=== PATIENT | female | born 1975 | race Caucasian/White ===

== ENCOUNTER 2020-03-08 16:34 | Emergency (ER) | payer OTHER, SELFPAY ==
[2020-03-08 16:46] VITALS: BP 140/71; PULSE 98; RESP 16; TEMP 36.9; O2SAT 99
--- NOTE | 2020-03-08 17:05 | ED.FEMALEGU ---
HPI - Female Genitourinary General Chief complaint: Urogenital-Female Stated complaint: possible uti Time Seen by Provider: 03/08/20 17:05 Source: patient and RN notes reviewed History of Present Illness HPI Narrative: Patient is a 44-year-old female who presents the urgent care with complaints of 3 to 4-day history of increased urinary frequency and suprapubic pressure. Patient has been taking Azo [id number] without much relief. Patient denies any fever, chills, nausea, vomiting. Denies any frequent history of UTIs. Denies of any blood in the urine. No other acute complaints. Patient is tearful due to at home stress but otherwise no acute distress noted. Patient aware of the plan of care. Related Data Allergies Allergy/AdvReac Type Severity Reaction Status Date / Time No Known Allergies Allergy Unverified 02/24/14 18:51 Review of Systems Review of Systems: Narrative: CONSTITUTIONAL: Denies fever, chills, or sweats. EYES: Denies visual changes, redness, or discharge. ENT: Denies rhinorrhea, congestion, sore throat, or otalgia. CARDIOVASCULAR: Denies chest pain, palpitations, or edema. RESPIRATORY: Denies cough or dyspnea. GASTROINTESTINAL: Denies abdominal pain, nausea, vomiting, or diarrhea. GENITOURINARY: Reports of dysuria and suprapubic pressure SKIN: Denies rash or itching. MUSCULOSKELETAL: Denies back pain, joint pain, or myalgia. NEUROLOGIC: Denies headache, numbness, or weakness. All other systems reviewed are negative, except as documented in HPI. PMFSH Comments At the time of my signature, I reviewed and agree with the nursing past medical, surgical, social, and family history. There is no relevant family history pertinent to the patient complaint. Exam Narrative: Exam Narrative: GENERAL: This is a well-nourished, well-developed patient, in no apparent distress. HEAD: normocephalic, atraumatic. EYES: PERRL. Sclera clear/white. Vision is grossly intact. EARS: External ears normal NOSE: External nose normal with no obvious nasal discharge, nares without redness, no rhinorrhea. THROAT: Mucous membranes moist NECK: Neck supple GASTROINTESTINAL: Abdomen soft, non-tender, nondistended. SKIN: warm, intact with no suspicious lesions or rash, good texture and turgor. NEURO: awake, alert, and oriented to person, place and time. There were no obvious focal neurologic abnormalities. EXTREMITIES: No clubbing, cyanosis, or edema. BACK: Negative bilateral CVA tenderness Course Vital Signs Vital signs: Vital Signs Temperature 98.5 F 03/08/20 16:46 Pulse Rate 98 03/08/20 16:46 Respiratory Rate 16 03/08/20 16:46 Blood Pressure 140/71 03/08/20 16:46 Pulse Oximetry 99 03/08/20 16:46 Temperature 98.5 F 03/08/20 16:46 Pulse Rate 98 03/08/20 16:46 Respiratory Rate 16 03/08/20 16:46 Blood Pressure 140/71 03/08/20 16:46 Pulse Oximetry 99 03/08/20 16:46 Reviewed MDM - Female Genitourinary MDM Narrative Medical decision making narrative: Reviewed lab results with the patient. She is aware that urine analysis is indicative of a urinary tract infection. Advised the patient to complete oral antibiotic regimen as prescribed. Use the Pyridium as needed for bladder spasms. We will culture the urine and call her if medication needs to be changed, based on culture results. Increase water intake and avoid sugary and caffeinated drinks. If you develop any increase in symptoms associated with fever, nausea, vomiting, abdominal pain, blood in the urine?go to the emergency room. Follow-up with your PCP within 2 to 5 days or for worsening symptoms or failure to improve. Differential Diagnosis Differential diagnosis: Likely urinary tract infection, cervicitis, ovarian cyst, vaginitis and cystitis Lab Data Labs: Urine Glucose Trace Reference Range: Negative Urine Bilirubin Negative Reference Range: Negative Urine Ketone Negative
== END 2020-03-08 17:21 | disposition home or self-care (01) ==
PROVIDERS: Emergency Provider Nurse Practitioner Family
DX: N39.0 Urinary tract infection, site not specified (principal)
CPT/HCPCS: 81003; 87077; 87086; 87088; 87186; 99213; G0463

== ENCOUNTER 2020-06-20 13:06 | Outpatient (CLI) | payer OTHER, SELFPAY ==
--- NOTE | ~2020-06-20 | MMUS_ITS ---
EXAMINATION: MM diagnostic ayush BI w gladys, US breast LT limited HISTORY: Six-month limited left breast ultrasound follow-up TECHNIQUE: Additional 3-D tomosynthesis images of were performed and synthetic 2-D images were genera latesha. CAD analysis was submitted and interpreted. High resolution breast ultrasound was performed. COMPARISON: 02/05/2019 limited left breast ultrasound 01/29/2019 diagnostic left digital mammogram 07/28/2018 bilateral diagnostic digital mammogram and limited left breast ultrasound 07/21/2018 bilateral digital screening mammogram BREAST PARENCHYMAL COMPOSITION: The breasts are heterogeneously dense, which may obscure small masses . FINDINGS: MAMMOGRAPHIC FINDINGS: Occasional microcalcifications are noted bilaterally including some grouped punctate rounded microcal cifications in the posterior aspect of the outer left breast on CC projection. These appear stable co mpared to the craniocaudal view dated 01/29/2019. No interval suspicious mass or architectural distortion, malignant calcification, skin thickening or retraction is evident. ULTRASOUND: 3:00 2 cm from nipple: 5.9 x 4.8 x 7.4 mm septated cyst with through transmission and posterior enhan cement 3:00 near nipple: 6.9 x 4.4 x 4.8 mm simple cyst with through transmission posterior enhancement 4:00 3 cm from nipple: Septated 14.3 x 5.9 x 11.1 mm cyst with through transmission posterior enhance ment. No suspicious mass or shadowing is evident. IMPRESSION: 1. No mammographic evidence of malignancy; benign cysts and benign appearing microcalcifications 2. Routine mammographic screening is recommended. BI-RADS Category 2: Benign finding(s). Reviewed, dictated and finalized at location A. IMPRESSION: 1. No mammographic evidence of malignancy; benign cysts and benign appearing mi crocalcifications 2. Routine mammographic screening is recommended. BI-RADS Category 2: Benign finding(s).
== END 2020-06-20 13:07 | disposition home or self-care (01) ==
PROVIDERS: PCP Obstetrics & Gynecology; Visit Provider Obstetrics & Gynecology
DX: R92.8 Other abnormal and inconclusive findings on diagnostic imaging of breast (principal)
CPT/HCPCS: 76642; 77062; 77066; G0279

== ENCOUNTER 2021-07-15 14:57 | Emergency (ER) | payer OTHER, SELFPAY ==
--- NOTE | 2021-07-15 15:07 | ED.EYEPROB ---
HPI - Eye Problem General Chief complaint: Eye Problems Stated complaint: left eye swelling Time Seen by Provider: 07/15/21 15:36 Source: patient and RN notes reviewed Mode of arrival: ambulatory Limitations: no limitations History of Present Illness HPI Narrative: 45-year-old female presents with multiple complaints. She reports left upper eyelid swelling without pain, drainage, vision changes. Reports symptoms started yesterday. Reports intermittent left-sided headache. In a separate complaint she also reports bilateral shoulder muscle pain and tension. Denies injury. Reports she has been experiencing a great amount of stress recently due to the anniversary of the of her mother. Reports she has taken [id number] NSAIDs without relief. MD chief complaint: other (Eye swelling, muscle spasm) Related Data Home Medications Medication Instructions Recorded Confirmed No Home Medications 07/15/21 07/15/21 Allergies Allergy/AdvReac Type Severity Reaction Status Date / Time No Known Allergies Allergy Unverified 02/24/14 18:51 Review of Systems Review of Systems: CONSTITUTIONAL: Denies malaise, chills, sweats, or fever. EYES: Denies visual changes, redness, or discharge. Reports left upper eyelid swelling ENT: Denies rhinorrhea, congestion, sinus pain, otalgia or sore throat. CARDIOVASCULAR: Denies chest pain, palpitations, or edema. RESPIRATORY: Denies cough or dyspnea. SKIN: Denies rash or itching. MUSCULOSKELETAL: Reports bilateral pain between the neck and shoulders NEUROLOGIC: Denies numbness, weakness. Reports intermittent left-sided headache. PSYCHIATRIC: Reports increased stress All systems reviewed & are unremarkable except as noted in HPI and below PMFSH Comments At time of signature, agree with nursing past medical, surgical, social and family history. There is no relevant family history pertinent to the presenting complaint Exam Narrative: GENERAL: Well-appearing, well-nourished, and in no acute distress. HEAD: Normocephalic, atraumatic. EYES: PERRLA, sclera clear, conjunctivae clear. Mild superficial edema in the left upper eyelid consistent with hordeolum ENT: Nares clear. Mucous membranes moist. NECK: Supple. CHEST: No respiratory distress. Speaks in full sentences. HEART: Regular rate and rhythm. No murmur heard. Normal peripheral pulses. EXTREMITIES: Grossly normal range of motion. No edema. SKIN: Warm, dry, no visible rash. NEURO: Alert and oriented x3. PSYCH: Tearful Course Course Emergency Course: Patient is aware of diagnosis, understands and agrees to treatment plan. Anticipatory guidance given. Patient agrees to follow-up as directed and is aware of reasons to seek care at the emergency department. Portions of this record may have been created with voice recognition software Vital Signs Vital signs: Reviewed. MDM - Eye Problem MDM Narrative Medical decision making narrative: Consideration of the following conditions may be warranted for the presenting problem, they are not final diagnoses: Bacterial conjunctivitis, allergic conjunctivitis, viral conjunctivitis, foreign body, blepharitis, chalazion, hordeolum, corneal abrasion, preseptal cellulitis, orbital cellulitis. No evidence of proptosis, ophthalmoplegia, vision loss, pain with eye movement. Exam findings show no acute concerns or changes; patient is non-toxic appearing and is in no distress. Patient is appropriate for outpatient treatment and follow-up. Critical Care Time Critical Care Time Critical Care Time: No Discharge Plan Discharge Clinical Impression: Muscle spasm Hordeolum Qualifiers: Hordeolum type: internum Laterality: left Eyelid: upper Qualified Code(s): H00.024 - Hordeolum internum left upper eyelid Patient Disposition: Home, Self-Care Condition: Stable Instructions: Stye (ED), Muscle Spasm (ED) Additional Instructions: Eye: Do not touch or rub your eye. Use a warm compress on your eye
[2021-07-15 15:09] VITALS: BP 120/83; PULSE 86; RESP 16; TEMP 36.6; O2SAT 100
[2021-07-15 15:10] VITALS: BP 120/83; PULSE 86; RESP 16; TEMP 36.6; O2SAT 100
== END 2021-07-15 15:49 | disposition home or self-care (01) ==
PROVIDERS: Emergency Provider Nurse Practitioner
DX: H00.024 Hordeolum internum left upper eyelid (principal); M62.838 Other muscle spasm
CPT/HCPCS: 99213; G0463

== ENCOUNTER 2021-12-10 17:39 | Outpatient (CLI) | payer OTHER, SELFPAY ==
--- NOTE | ~2021-12-10 | MM_ITS ---
EXAMINATION: MM screening ayush BI w gladys HISTORY: Screening TECHNIQUE: Craniocaudal and mediolateral oblique 3-D tomosynthesis images were obtained and synthetic 2-D images were generated. CAD analysis was submitted and interpreted. COMPARISON: Comparison to multiple prior studies sequentially, with oldest reviewed study dated 07/03. BREAST PARENCHYMAL COMPOSITION: The breasts are heterogenously dense, which may obscure small masses FINDINGS: There are developing bilateral breast asymmetries in the upper outer quadrant of the left b reast and upper aspect of the right breast on MLO view. IMPRESSION: 1. Developing bilateral breast asymmetries. 2. Additional mammographic views and possible breast ultrasound are recommended. BI-RADS Category 0: Incomplete: Needs additional imaging evaluation. Reviewed, dictated and finalized at location A. MASTERS MANAGER IMPRESSION: 1. Developing bilateral breast asymmetries. 2. Additional mammographic views and possible breast ultrasound are recommended . BI-RADS Category 0: Incomplete: Needs additional imaging evaluation.
== END 2021-12-10 17:40 | disposition home or self-care (01) ==
LOC: ANHIMG 17:41
PROVIDERS: Visit Provider Student in an Organized Health Care Education/Training Program
DX: Z12.31 Encounter for screening mammogram for malignant neoplasm of breast (principal); R92.8 Other abnormal and inconclusive findings on diagnostic imaging of breast
CPT/HCPCS: 77063; 77067

== ENCOUNTER 2022-01-08 13:03 | Outpatient (CLI) | payer OTHER, SELFPAY ==
--- NOTE | ~2022-01-08 | MMUS_ITS ---
EXAMINATION: MM diagnostic ayush BI w gladys, US breast BI limited HISTORY: Follow-up bilateral masses TECHNIQUE: Additional 3-D tomosynthesis images of the breasts were performed and synthetic 2-D images were generated. CAD analysis was submitted and interpreted. High resolution limited bilateral breast ultrasound was performed. COMPARISON: Comparison to multiple prior studies sequentially, with oldest reviewed study dated 07/03. BREAST PARENCHYMAL COMPOSITION: The breasts are heterogenously dense, which may obscure small masses FINDINGS: MAMMOGRAPHIC FINDINGS: There are subtle bilateral masses superiorly in both breasts which are obscured by fibroglandular tis nathan. ULTRASOUND: Limited right breast ultrasound: There are multiple right breast cysts. In addition at 8:00, 4 cm fro m the nipple there is an oval hypoechoic mass without internal vascularity or posterior features tanya uring 9 mm maximum dimension, likely benign. Limited left breast ultrasound: There are multiple left breast cysts. In addition, there is an oval h ypoechoic mass measuring 5 x 5 x 4 mm without internal vascularity or posterior features, likely maría gn. IMPRESSION: 1. Probable benign bilateral breast masses by ultrasound. Multiple additional benign cysts are presen t in both breasts. 2. Recommend 6 month follow-up limited bilateral breast ultrasound. BI-RADS category 3, probably benign findings. Reviewed, dictated and finalized at location A. IMPRESSION: 1. Probable benign bilateral breast masses by ultrasound. Multiple additional b enign cysts are present in both breasts. 2. Recommend 6 month follow-up limited bilateral breast ultrasound. BI-RADS category 3, probably benign findings.
== END 2022-01-08 13:04 | disposition home or self-care (01) ==
LOC: ANHIMG 13:05
PROVIDERS: Visit Provider Student in an Organized Health Care Education/Training Program
DX: N60.02 Solitary cyst of left breast (principal); N60.01 Solitary cyst of right breast
CPT/HCPCS: 76642; 77062; 77066; G0279

== ENCOUNTER 2022-02-01 07:37 | Outpatient (CLI) | payer OTHER, SELFPAY ==
[2022-02-01 08:06] LABS: Basophils Absolute Auto 0.1 K/mm3 (0.0-0.1); Basophils Percent Auto 0.8 % (0.2-1.2); Eosinophils Absolute Auto 0.1 K/mm3 (0-0.3); Eosinophils Percent Auto 1.3 % (0-4.4); Hematocrit 42.1 % (37.0-47.0); Hemoglobin 13.2 g/dL (12.0-15.0); Immature Granulocyte Absolute 0.03 K/mm3 (0.00-0.031); Immature Granulocyte Percent A 0.4 % (0-0.5); Lymphocytes Absolute Auto 2.39 K/mm3 (0.9-3.2); Lymphocytes Percent Auto 30.3 % (18.3-44.2); Mean Corpuscular HGB Conc 31.4 g/dl (32-36); Mean Corpuscular Hemoglobin 27.7 pg (26-34); Mean Corpuscular Volume 88.4 fl (80-100); Mean Platelet Volume 9.4 fl (7.4-10.4); Monocytes Absolute Auto 0.6 K/mm3 (0.1-0.6); Monocytes Percent Auto 7.5 % (2.6-8.5); Neutrophils Absolute Auto 4.7 K/mm3 (1.3-6.7); Neutrophils Percent Auto 59.7 % (45.5-73.1); Platelet Count Result 394 k/mm3 (150-375); Red Blood Count 4.76 M/mm3 (4.2-5.4); Red Cell Distribution Width 13.2 % (11.5-14.5); White Blood Count 7.9 K/mm3 (4.5-10.0)
[2022-02-01 08:14] LABS: Alanine Aminotransferase 15 U/L (4-35); Albumin Level 4.6 g/dL (3.5-5.1); Alkaline Phosphatase 67 U/L (38-126); Anion Gap 8 mmol/L (8-16); Aspartate Amino Transferase 21 U/L (14-36); Bilirubin,Total 0.4 mg/dL (0.2-1.3); Blood Urea Nitrogen 13 mg/dL (7-17); Calcium 8.9 mg/dL (8.4-10.2); Carbon Dioxide 26 mmol/L (22-30); Chloride 105 mmol/L (98-107); Cholesterol 187 mg/dL (0-200); Estimated Glomerular Filt Rate > 60; Glucose 103 mg/dL (65-110); HDL Direct 48 mg/dL; Potassium 4.3 mmol/L (3.4-5.0); Sodium 139 mmol/L (137-145); Triglycerides 87 mg/dL (<150)
[2022-02-01 08:25] LABS: Hemoglobin A1C 5.1 % (<5.7); LDL Cholesterol Direct 99 mg/dL
[2022-02-01 08:48] LABS: Free T4 Free Thyroxine 1.09 ng/mL (0.78-2.19)
== END 2022-02-01 07:38 | disposition home or self-care (01) ==
DX: Z00.00 Encounter for general adult medical examination without abnormal findings (principal); R53.83 Other fatigue
CPT/HCPCS: 36415; 80053; 80061; 83036; 84439; 84443; 85025

== ENCOUNTER 2022-04-28 15:27 | Emergency (ER) | payer OTHER, SELFPAY ==
--- NOTE | ~2022-04-28 | XR_ITS ---
XR ankle RT min 3V DATE: 04/28/2022 15:48 INDICATION: Right lateral ankle pain after twisting injury last night TECHNIQUE: 4 views COMPARISON: None FINDINGS: Prominent plantar and posterior calcaneal enthesopathy. No fracture or dislocation of the ankle or disruption of the ankle mortise. No periosteal reaction or bone destruction. IMPRESSION: No fracture or dislocation Prominent plantar and posterior calcaneal enthesopathy Reviewed, dictated and finalized at location A.
--- NOTE | 2022-04-28 15:28 | ED.LOWEXIN ---
HPI - Extremity Injury (Lower) General Chief Complaint: Extremity Injury, Lower Stated Complaint: right ankle pain Time Seen by Provider: 04/28/22 15:53 Source: patient and RN notes reviewed Mode of arrival: ambulatory Limitations: no limitations History of Present Illness HPI Narrative: 46-year-old female presents to the [facility] with complaints of lateral right ankle pain since yesterday. Patient states that she rolled it while trying to walk [place] of the movie theater. Has taken ibuprofen and iced it. Patient states she did not fall or hit her head. No knee pain. Related Data Allergies Allergy/AdvReac Type Severity Reaction Status Date / Time No Known Allergies Allergy Unverified 02/24/14 18:51 Review of Systems Review of Systems: All systems reviewed & are unremarkable except as noted in HPI and below Constitutional: Constitutional: Reports no additional constitutional complaints, Denies chills and Denies fever(s) Eyes: Eyes: Reports no additional eye complaints ENT: Reports system reviewed and no additional complaints, except as documented Cardiovascular: Cardiovascular: Reports no additional cardiovascular complaints Respiratory: Respiratory: Reports no additional respiratory complaints Gastrointestinal: Gastrointestinal: Reports no additional gastrointestinal complaints Musculoskeletal: Musculoskeletal: Reports as per HPI, Reports arthralgias and Reports joint swelling Integumentary/Breasts: Skin/Breast: Reports system reviewed and no additional complaints, except as docu Neurologic: Reports system reviewed and no additional complaints, except as documented Psychiatric: Psychiatric: Reports no additional psychiatric complaints Allergic/Immunologic: Allergic/Immunologic: Reports no additional allergic/immunologic complaints PMFSH Past Medical History Medical History Anxiety and depression Social History Social History (Updated 04/28/22 @ 19:53 by Ade Cheng APRN) Living arrangements: with family Gender identity (if verbalized by the patient): Female Comments At the time of my signature, I reviewed and agree with the nursing past medical, surgical, social, and family history. There is no relevant family history pertinent to the patient complaint. Exam Const: General: healthy appearing, no acute distress and alert Nutritional Appearance: well nourished Orientation/consciousness: patient oriented x3 Limitations: no limitations HENMT: Head: normal to inspection Ears: external ears normal Eyes: General: appearance normal, both eyes and all related structures Pupils: Equal, round and reactive pupils present Neck: Neck: normal visual inspection, no lymphadenopathy and no meningeal signs Chest: Chest palpation & inspection: normal inspection of the chest Resp: Effort & Inspection: normal respiratory effort and no use of accessory muscles Auscultation: clear to auscultation bilaterally, no crackles, no rales, no rhonchi and no wheezes Cardio: Rate: regular rate Rhythm: regular rhythm GI: GI Palp: Yes Soft to palpation and No Tenderness to palpation present (GI) Back/Spine/Pelvis: Cervical Spine: normal cervical lordosis Thoracic/Lumbar Spine: thoracic and lumbar spine normal to inspection Skin: General skin exam: normal color Rashes: no rashes Wounds: no wounds Neuro: General: patient oriented x3, moves all extremities, no meningeal signs and no focal motor deficits Cranial nerves: Yes Equal, round and reactive pupils present Speech: normal speech Gait exam (Neuro): Normal gait present Extrem: General: normal to inspection, full ROM and capillary refill normal Right lower extremity: full ROM, normal capillary refill and ankle Details: tenderness Location: of the lateral malleolus, swelling Details: laterally and normal ROM; no abrasions, no lacerations and no ecchymosis Psych: Appearance: grossly normal and well kempt Ment
[2022-04-28 15:36] VITALS: BP 133/84; PULSE 90; RESP 16; TEMP 36.7; O2SAT 100
== END 2022-04-28 16:04 | disposition home or self-care (01) ==
PROVIDERS: Emergency Provider Nurse Practitioner
DX: S93.401A Sprain of unspecified ligament of right ankle, initial encounter (principal); X50.9XXA Other and unspecified overexertion or strenuous movements or postures, initial encounter
CPT/HCPCS: 73610; 99213; G0463

== ENCOUNTER 2022-08-20 07:58 | Outpatient (CLI) | payer OTHER, SELFPAY ==
--- NOTE | ~2022-08-20 | US_ITS ---
US breast BI limited 08/20/2022 08:57 Indication: Follow-up bilateral breast masses Procedure: High-resolution limited bilateral breast ultrasound Comparison: 01/08/2022 and 06/20/2020 Findings: In the right breast at 8:00, 4 cm from the nipple, there is a stable oval hypoechoic mass w ith circumscribed margins measuring 9 x 8 x 7 mm compared with 9 x 6 x 8 mm on prior examination. Thi s mass exhibits no significant posterior features. Left breast: At 3:00, 3 cm from the nipple there is a cluster of cysts, one of which contains interna l septations. These are unchanged from prior study. The largest cyst measures 1.9 cm. The oval 5 mm h ypoechoic mass in the left breast previously seen at 3:00, 3 cm from the nipple was not definitely se en on the current study. Impression: 1: Stable benign-appearing right breast mass at 8:00, 4 cm from the nipple, likely benign. No sonogra phic evidence for malignancy in the left breast. BI-RADS CATEGORY 3-PROBABLY BENIGN FINDING RECOMMENDATION: Six-month follow-up bilateral mammogram and Limited right breast ultrasound recommend ed. Reviewed, dictated and finalized at location A. [employer] DISPOSAL AGENT Impression: 1: Stable benign-appearing right breast mass at 8:00, 4 cm from the nipple, lik moni benign. No sonographic evidence for malignancy in the left breast. BI-RADS CATEGORY 3-PROBABLY BENIGN FINDING RECOMMENDATION: Six-month follow-up bilateral mammogram and Limited right breas t ultrasound recommended.
== END 2022-08-20 07:59 | disposition home or self-care (01) ==
LOC: ANHIMG 08:00
PROVIDERS: Visit Provider Obstetrics & Gynecology
DX: R92.8 Other abnormal and inconclusive findings on diagnostic imaging of breast (principal)
CPT/HCPCS: 76642

== ENCOUNTER 2022-09-17 08:32 | Emergency (ER) | payer OTHER, SELFPAY ==
--- NOTE | 2022-09-17 08:35 | ED.URI ---
HPI - URI/Sore Throat General Chief Complaint: Upper Respiratory Infection Stated Complaint: Cough,Sinus Time Seen by Provider: 09/17/22 08:36 Source: patient Mode of arrival: ambulatory Limitations: no limitations History of Present Illness HPI Narrative: Leatha is a 46-year-old female patient presenting to the clinic today with complaints of cough and runny nose x4 days. She reports she feels as though her cervical glands are swollen. States her throat does hurt from coughing and she does have a little chest discomfort from her cough. States she did take some NyQuil and this helped some. She denies any fever or chills. She denies any shortness of breath MD elicited complaint: sore throat and nasal congestion Related Data Allergies Allergy/AdvReac Type Severity Reaction Status Date / Time No Known Allergies Allergy Unverified 02/24/14 18:51 Review of Systems Review of Systems: Pertinent positives per HPI. Patient denies any fever, chills, rash, headache, visual changes, dizziness, shortness of breath, chest pain, palpitations, nausea, vomiting, diarrhea, constipation, abdominal pain, or any urinary issues. [facility] Past Medical History Medical History Anxiety and depression Social History Social History (Updated 04/28/22 @ 19:53 by Ade Cheng APRN) Gender identity (if verbalized by the patient): Female Comments At the time of my signature, I reviewed and agree with the nursing past medical, surgical, social, and family history. There is no relevant family history pertinent to the patient complaint. Exam Narrative: General: Well-developed, well nourished, in no apparent distress Head: Normocephalic, atraumatic Eyes: Pupils equally round and reactive to light bilaterally, EOM intact, sclera and conjunctive clear, no discharge, lids normal Ears: TMs intact and dull, ear canals clear, no drainage, grossly hearing normal. Nose: Nares patent, clear nasal discharge, no inflammation, no sinus tenderness. Mouth: Oral pharynx without lesions or masses, good dentition, MMM. oropharynx red, postnasal drip Neck: Supple, trachea midline, mild enlargement of anterior cervical nodes, no thyroid masses or goiter palpable. Cardio: Regular rate and rhythm, s1 and s2 normal, no murmur appreciated. Resp: Clear to auscultation bilaterally, no rhonchi, rales, wheezing or rubs Course Course Emergency Course: Portions of this record may have been created with voice recognition software. Level of Care: Express Care Visit Vital Signs Vital signs: Vital signs reviewed MDM - URI/Sore Throat MDM Narrative Medical decision making narrative: At the time of visit patient is resting comfortably on the exam table. COVID testing was completed in the clinic. I suspect patient has URI /postnasal drip. Prescription for prednisone and Tessalon Perles was sent to the pharmacy. Supportive measures were discussed with the patient and she voiced understanding of discharge instructions and agrees to treatment plan. Differential Diagnosis Differential diagnosis: Likely upper respiratory infection, otitis media, sinusitis, viral infection, bronchitis, influenza, pharyngitis and other ( COVID) Discharge Plan Discharge Clinical Impression: Acute upper respiratory infection, PND (post-nasal drip) Patient Disposition: Home, Self-Care Condition: Stable Instructions: Antibiotic Form, Upper Respiratory Infection (ED), Postnasal Drip (DC) Additional Instructions: COVID testing was negative in the clinic today. Take prescription medications only as prescribed- Prednisone and Tessalon Perles Continue taking DayQuil / NyQuil for cold/flu symptoms Increase fluids and stay well hydrated Tylenol/motrin for pain/fever Flonase and OTC antihistamines as directed Vicks vapor rub to open sinuses Sinus rinses for congestion Cepacol spray, cough drops, throat lozeng
[2022-09-17 08:39] VITALS: BP 126/68; PULSE 110; RESP 18; TEMP 36.2; O2SAT 100
== END 2022-09-17 09:09 | disposition home or self-care (01) ==
PROVIDERS: Emergency Provider Nurse Practitioner Family
DX: J06.9 Acute upper respiratory infection, unspecified (principal); R09.82 Postnasal drip; Z20.822 Contact with and (suspected) exposure to COVID-19
CPT/HCPCS: 87426; 99213; C9803; G0463

== ENCOUNTER 2023-04-04 09:51 | Outpatient (CLI) | payer OTHER, SELFPAY ==
--- NOTE | ~2023-04-04 | MMUS_ITS ---
EXAMINATION: US breast biopsy RT w image, MM post biopsy invasive RT DATE: 04/04/2023 11:35 (accession [id number]), 04/04/2023 11:10 (accession [id number]) INDICATION: Indeterminate mass in the upper outer quadrant of the right breast. Ultrasound-guided cor e biopsy is requested to evaluate for malignancy. TECHNIQUE AND FINDINGS: The risks and potential benefits of the procedure were discussed with the patient including bleeding and infection. A time out was performed. The skin of the right breast was prepared and draped in usua l sterile fashion. 1% lidocaine was used for superficial anesthesia. 1% lidocaine with epinephrine wa s used for deep anesthesia. A vacuum-assisted biopsy needle was advanced through to the outer edge of the region of interest from a lateral approach utilizing sonographic guidance. A total of five tissue core samples were obtained through the lesion. A tissue marker clip was then placed at the biopsy site. Hemostasis was achieved . A sterile bandage was applied. The patient tolerated procedure well and there was no evidence of immediate complication. The patient was given verbal instructions to return to the Emergency Department in the event of severe breast pa in or rapid breast enlargement. A two view right breast mammogram was obtained to document tissue mar ker clip placement. IMPRESSION: 1. Successful ultrasound-guided vacuum-assisted biopsy of right breast mass with tissue marker placem ent. Reviewed, dictated and finalized at location A. IMPRESSION: 1. Successful ultrasound-guided vacuum-assisted biopsy of right breast mass wit h tissue marker placement.
== END 2023-04-04 09:52 | disposition home or self-care (01) ==
PROVIDERS: PCP Obstetrics & Gynecology; Visit Provider Surgery
DX: N60.21 Fibroadenosis of right breast (principal)
CPT/HCPCS: 19083; 88305

== ENCOUNTER 2024-03-26 09:12 | Emergency (ER) | payer OTHER, SELFPAY ==
--- NOTE | ~2024-03-26 | XR_ITS ---
EXAMINATION: XR humerus RT DATE: 03/26/2024 10:32 INDICATION: Lower anterior right humeral pain and lump post injury 2 days prior TECHNIQUE: Internal and externally rotated views of the right humerus were obtained. COMPARISON: None. FINDINGS: Bone alignment is normal. No fracture. Mild osteoarthritis at the right acromioclavicular j oint. Glenohumeral and elbow joint spaces appear normal. Cystic change underlying the junction of the superior and middle facets of the greater tuberosity which can be seen with chronic rotator cuff dis ease. Soft tissues are unremarkable. Visualized portion of the right lung are clear. IMPRESSION: 1. No acute osseous abnormality. 2. Mild right acromioclavicular osteoarthritis and cystic change at the right greater tuberosity whic h can be seen with chronic rotator cuff disease. Reviewed, dictated and finalized at location B. IMPRESSION: 1. No acute osseous abnormality. 2. Mild right acromioclavicular osteoarthritis and cystic change at the right g reater tuberosity which can be seen with chronic rotator cuff disease.
[2024-03-26 09:29] VITALS: BP 131/88; PULSE 91; RESP 16; TEMP 37.1; O2SAT 99
--- NOTE | 2024-03-26 10:20 | ED.UPPEXIN ---
HPI - Extremity Injury (Upper) General Chief Complaint: Extremity Injury, Upper Stated Complaint: Right Arm Injury Time Seen by Provider: 03/26/24 10:14 Source: patient and RN notes reviewed Mode of arrival: ambulatory Limitations: no limitations History of Present Illness HPI narrative: Patient presents today complaining of right upper arm and elbow injury. Two days ago she was helping move some furniture at her father's home, slipped while kneeling on a table, caught herself with her arm and has been having pain in the upper arm and elbow ever since. Denies numbness or tingling. Currently rates her pain 4/10 and has been taking ibuprofen with some relief. Related Data Home Medications Medication Instructions Recorded Confirmed norgestimate 0.25 mg-ethinyl 1 tablet PO DAILY 03/14/23 03/26/24 estradiol 35 mcg tablet (Sprintec (28)) Allergies Allergy/AdvReac Type Severity Reaction Status Date / Time No Known Allergies Allergy Unverified 03/14/23 15:54 Review of Systems Review of Systems: CONSTITUTIONAL: Denies body aches, fever, chills, or sweats. EYES: Denies visual changes, redness, or discharge. ENT: Denies rhinorrhea, congestion, sore throat, or otalgia. CARDIOVASCULAR: Denies chest pain, palpitations, or edema. RESPIRATORY: Denies cough or dyspnea. GASTROINTESTINAL: Denies abdominal pain, nausea, vomiting, or diarrhea. GENITOURINARY: Denies dysuria or hematuria. SKIN: Denies rash, itching, or wounds. MUSCULOSKELETAL: Denies back pain, joint pain, or myalgia.+ right upper arm pain NEUROLOGIC: Denies headache, numbness, tingling, or weakness. PSYCH: Denies depression or anxiety. [facility] Past Medical History Medical History Anxiety and depression Social History Social History Smoking status: Never smoker Second hand tobacco smoke exposure: No Alcohol intake: current Lack of Transportation: No Lack of Food: Never True Current Housing: I Have Housing Concerned About Future Housing: No Difficulty Paying Gas/Electric Bills: Decline to Answer Difficulty Paying for Meds: Decline to Answer Currently Unemployed: No Education: Decline to Answer Difficulty w/ Childcare or Family Care: Decline to Answer Living arrangements: with family Gender identity (if verbalized by the patient): Female Comments At time of signature, I have reviewed and agree with nursing past medical, surgical, social and family history unless otherwise noted. Please see nursing chart for further information. There is no relevant family history pertinent to the presenting complaint Exam Narrative: GENERAL: Well-appearing, well-nourished, and in no acute distress. HEAD: Normocephalic, atraumatic. EYES: EOMI. No redness or drainage. Conjunctivae normal. ENT: Mucous membranes pink and moist. NECK: Normal AROM. CHEST: No respiratory distress. EXTREMITIES: Right arm: Large bulge to the biceps area that is mildly tender to palpation. Patient has some bruising and mild localized swelling to the medial epicondyle area. No bony tenderness to the olecranon process. Full range of motion of the shoulder and elbow. Distal sensation intact. Capillary refill normal. Radial pulse normal. SKIN: Warm, dry, no rash. Capillary refill normal. Normal skin turgor. NEURO: No focal deficits. Alert and oriented x3. Gait steady. PSYCH: Normal affect. No signs of depression or anxiety. Course Course Level of Care: Express Care Visit Vital Signs Vital signs: Vital Signs Temperature 98.7 F 03/26/24 09:29 Pulse Rate 91 03/26/24 09:29 Respiratory Rate 16 03/26/24 09:29 Blood Pressure 131/88 03/26/24 09:29 Pulse Oximetry 99 03/26/24 09:29 Oxygen Delivery Room Air 03/26/24 09:29 Temperature 98.7 F 03/26/24 09:29 Pulse Rate 91 03/26/24 09:29 Respiratory Ra
== END 2024-03-26 11:13 | disposition home or self-care (01) ==
PROVIDERS: Emergency Provider Nurse Practitioner; PCP Obstetrics & Gynecology
DX: S49.91XA Unspecified injury of right shoulder and upper arm, initial encounter (principal); W01.0XXA Fall on same level from slipping, tripping and stumbling without subsequent striking against object, initial encounter
CPT/HCPCS: 73060; 99213; G0463